=== PATIENT | male | born 1970 | race Two or more races ===

== ENCOUNTER 2018-04-06 01:35 | Emergency (ER) | payer MEDICAID, OTHER ==
[2018-04-06 02:00] VITALS: BP 121/88
--- NOTE | 2018-04-06 02:23 | EDPHY ---
H & P Stated Complaint: SUTURE REMOVAL, IN FOR 1.5 MONTHS Time Seen by Provider: 04/06/18 02:19 HPI/ROS: HPI CHIEF COMPLAINT: Possible retained sutures. HISTORY OF PRESENT ILLNESS: 47-year-old male, he states he is homeless, he states approximately 1.5 months ago he had sutures placed in his left forehead laceration. He presents to the emergency room to have sutures removed. However upon further evaluation patient does not have any sutures in his left forehead wound. The laceration is clean, dry and intact. No signs of infection. The scab was removed. And the wound was clean. No dehiscence no signs of infection. No visible sutures. Unclear if he had absorbable sutures placed. Patient states sutures were placed in [place] 1.5 months ago. Past Medical History: Denies medical history Past Surgical History: Denies surgical history Social History: Homeless, drinks alcohol. From [place]. Family History: Noncontributory ROS REVIEW OF SYSTEMS: A comprehensive 10 point review of systems is otherwise negative aside from elements mentioned in the history of present illness. Exam Constitutional triage nursing summary reviewed, vital signs reviewed, awake/ alert. Eyes normal conjunctivae and sclera, EOMI, PERRLA. HENT head left forehead region: Shows a 6 cm horizontally oriented laceration that is well approximated, clean, dry, no evidence of infection, no evidence of wound infection or dehiscence or retained sutures, normal inspection, atraumatic, moist mucus membranes, no epistaxis, neck supple/ no meningismus, no raccoon eyes. Respiratory clear to auscultation bilaterally, normal breath sounds, no respiratory distress, no wheezing. Cardiovascular rate normal, regular rhythm, no murmur, no edema, distal pulses normal. Gastrointestinal soft, non-tender, no rebound, no guarding, normal bowel sounds, no distension, no pulsatile mass. Genitourinary no CVA tenderness. Musculoskeletal no midline vertebral tenderness, full range of motion, no calf swelling, no tenderness of extremities, no meningismus, good pulses, neurovascularly intact. Skin pink, warm, & dry, no rash, skin atraumatic. Neurologic awake, alert and oriented x 3, AAOx3, moves all 4 extremities equally, motor intact, sensory intact, CN II-XII intact, normal cerebellar, normal vision, normal speech. Psychiatric normal mood/affect. Heme/Lymph/Immune no lymphadenopathy. Differential Diagnosis: Includes but is not limited to in a particular order: Wound evaluation. Retained sutures, dehiscence. Medical Decision Making: No evidence of retained sutures. Wound is clean, not infected. Plan will be for discharge. Return precautions discussed with the understands to watch for signs of further infection. Source: Patient - Personal History Current Tetanus/Diphtheria Vaccine: Yes Current Tetanus Diphtheria and Acellular Pertussis (TDAP): Yes - Medical/Surgical History Hx Asthma: No Hx Chronic Respiratory Disease: No Hx Diabetes: No Hx Cardiac Disease: No Hx Renal Disease: No Hx Cirrhosis: No Hx Alcoholism: No Hx HIV/AIDS: No Hx Splenectomy or Spleen Trauma: No Other PMH: DENIES. - Social History Smoking Status: Never smoked Constitutional: Initial Vital Signs Temperature (C) 37.0 C 04/06/18 01:35 Heart Rate 92 04/06/18 01:35 Respiratory Rate 18 04/06/18 01:35 Blood Pressure 121/88 H 04/06/18 01:35 O2 Sat (%) 100 04/06/18 01:35 O2 Delivery Mode Room Air Allergies/Adverse Reactions: No Known Allergies Allergy (Unverified 04/06/18 02:00) Home Medications: Medication Instructions Recorded NK [No Known Home Meds] 04/06/18 Departure - Departure Disposition: Home, Routine, Self-Care Clinical Impression: Visit for wound check Condition: Good Instructions: Wound Healing and Your Diet (ED) Referrals: NONE *PRIMARY CARE P,. [Primary Care Provider] - As per Instructions
== END 2018-04-06 02:34 | disposition home or self-care (01) ==
DX: Z48.01 Encounter for change or removal of surgical wound dressing (principal)

== ENCOUNTER 2018-10-11 12:16 | Emergency (ER) | payer MEDICAID ==
--- NOTE | 2018-10-11 12:20 | EDPHY ---
H & P Source: Patient Exam Limitations: No limitations - Medical/Surgical History Hx Asthma: No Hx Chronic Respiratory Disease: No Hx Diabetes: No Hx Cardiac Disease: No Hx Renal Disease: No Hx Cirrhosis: No Hx Alcoholism: No Hx HIV/AIDS: No Hx Splenectomy or Spleen Trauma: No Other PMH: DENIES. - Social History Smoking Status: Never smoked Time Seen by Provider: 10/11/18 12:19 HPI/ROS: HPI: This is a 48-year-old male who presents with Chief Complaint: [facility] hold Location: body Quality: Alcohol intoxication Duration: Unknown Signs and Symptoms: no fever, no nausea, no vomiting, no hematemesis, no blood in stool, no abdominal bloating, no diarrhea, no back pain, no urinary symptoms , no testicular/groin pain, no indigestion, no chest pain, no shortness of breath Timing: Acute on chronic Severity: Moderate to severe Context: Patient is brought in by police on [facility]. He was found with a group and passed out with a bottle of [place] next to him. He was unable to ambulate on his own and was brought to the emergency room for further evaluation. He was placed on [facility] hold by [facility] [employer]. He is currently sleeping soundly and has no complaints and is a very poor historian. Patient defecated on his leg. Modifying Factors: None Comment: ROS: A comprehensive 10 system review of systems is otherwise negative aside from elements mentioned in the history of present illness. MEDICAL/SURGICAL/SOCIAL HISTORY: Medical history: Alcohol abuse Surgical history: Denies Social history: Homeless. Family history noncontributory. CONSTITUTIONAL: Intoxicated, middle-aged male who appears older than stated age , malodorous, untidy, sleeping soundly, awake and alert, no obvious distress HEENT: Atraumatic and normocephalic, PERRL, EOMI. Nares patent; no rhinorrhea; no nasal mucosal edema. Tympanic membranes clear. Oropharynx clear, no exudate and moist pink mucosa. Airway patent. No lymphadenopathy. No meningismus. Cardiovascular: Normal S1/S2, regular rate, regular rhythm, without murmur rub or gallop. PULMONARY/CHEST: Symmetrical and nontender. Clear to auscultation bilaterally. Good air movement. No accessory muscle usage. ABDOMEN: Soft, nondistended, nontender, no rebound, no guarding, no peritoneal signs, no masses or organomegaly. No CVAT. EXTREMITIES: 2/2 pulses, strength 5/5, no deformities, no clubbing, no cyanosis or edema. NEUROLOGICAL: no focal neuro deficits. GCS 13. Awakens to sternal rub and then quickly falls back asleep. SKIN: Warm and dry, no erythema. no rash. Good capillary refill. (Skylar Prado) Constitutional: Initial Vital Signs Temperature (C) 36.6 C 10/11/18 12:21 Heart Rate 69 10/11/18 12:21 Respiratory Rate 16 10/11/18 12:21 Blood Pressure 112/89 H 10/11/18 12:21 O2 Sat (%) 98 10/11/18 12:21 O2 Delivery Mode Room Air Allergies/Adverse Reactions: No Known Allergies Allergy (Unverified 04/06/18 02:00) Home Medications: Medication Instructions Recorded NK [No Known Home Meds] 04/06/18 Medical Decision Making ED Course/Re-evaluation: Vital signs reviewed and stable upon arrival. Placed on manager cardiac. Agree with [facility] hold. 1530: Patient ambulating back and forth to the restroom without any signs of ataxia. He is appropriate to be discharged to the [facility] with Librium prepack. 1625: [facility] Police has arrived to transfer patient to the [facility]. This patient was seen under the supervision of my secondary supervising physician. I evaluated care for this patient independently. (Skylar Prado) Differential Diagnosis: Altered mental status including but not limited to hypoglycemia, infectious process, electrolyte abnormality, head injury and intoxicants. (Skylar Prado) Other Provider: The patient was evaluated and managed by the Physician [facility] Management Assistant. My co- signature indicates that I have reviewed this chart and I agree with the findings and plan of care as documented. I am the secondary supervising physician. (Jodee Miller) - Data Points Medications Given: Discontinued Medications Chlordiazepoxide (Librium 25 Mg Prepack#6) 1 btl TAKEHOME EDNOW ONE Stop: 10/11/18 15:30 Last Admin: 10/11/18 16:22 Dose: 1 btl Departure - Departure Disposition: Home, Routine, Self-Care Clinical Impression: Alcoholic intoxication without complication Condition: Good Instructions: Alcohol Intoxication (ED), Abuse of Alcohol (ED) Additional Instructions: Please refrain from drinking alcohol excessively. You are medically cleared to be discharged to the [facility]. Referrals: [facility],. [Clinic] - As per Instructions [facility] 24 Hours [Outside] - As per Instructions
[2018-10-11 15:21] VITALS: BP 110/70
[2018-10-11] MEDS ORDERED: CHLORDIAZEPOXIDE 25MG PREPK#6 BTL TAKEHOME ONE (15:29)
== END 2018-10-11 16:53 | disposition home or self-care (01) ==
LOC: EDUNIT#
DX: F10.920 Alcohol use, unspecified with intoxication, uncomplicated (principal)

== ENCOUNTER 2018-10-16 21:17 | Emergency (ER) | payer SELFPAY ==
[2018-10-16] MEDS ORDERED: LORazepam 2 MG/ML INJ IVP ONE (21:25)
[2018-10-16] MEDS ORDERED: NS 1,000 ML IV ONE (21:25)
[2018-10-16] MEDS ORDERED: chlordiazePOXIDE 25 MG CAP PO ONE (21:25)
--- NOTE | 2018-10-16 21:49 | EDPHY ---
H & P Stated Complaint: med clear for retirement, n/v,etoh Time Seen by Provider: 10/16/18 21:18 HPI/ROS: Chief complaint: Alcohol intoxication History of present illness: This is a 48-year-old male brought to the emergency department by EMS for alcohol intoxication. He was found outside intoxicated. Apparently he is under arrest and will be going to retirement this evening. On my evaluation he states he has been drinking heavily and just feels unwell. He has had some nausea, EMS did provide Zofran with resolution of nausea. No vomiting. No diarrhea or constipation. Review of systems: A 10 point review of systems was obtained and other than described above was negative - Personal History Current Tetanus Diphtheria and Acellular Pertussis (TDAP): Yes - Medical/Surgical History Hx Asthma: No Hx Chronic Respiratory Disease: No Hx Diabetes: No Hx Cardiac Disease: No Hx Renal Disease: No Hx Cirrhosis: No Hx Alcoholism: No Hx HIV/AIDS: No Hx Splenectomy or Spleen Trauma: No Other PMH: kidney surgery, etoh abuse, esophageal varacices. - Social History Smoking Status: Never smoked - Physical Exam Exam: General Appearance: Alert, strong odor of alcohol on his breath. Eyes: Pupils equal and round no pallor or injection. ENT, Mouth: Mucous membranes moist. Respiratory: There are no retractions, lungs are clear to auscultation. Cardiovascular: Regular rate and rhythm. Gastrointestinal: Abdomen is soft and non tender, no masses, bowel sounds normal. Neurological: Alert. Strength and sensation intact and symmetrical. Skin: Warm and dry, no rashes. Musculoskeletal: Neck is supple non tender. Extremities are symmetrical, full range of motion. Psychiatric: Patient is oriented X 3, there is no agitation. Constitutional: Initial Vital Signs Temperature (C) 36.6 C 10/16/18 21:21 Heart Rate 82 10/16/18 21:21 Respiratory Rate 16 10/16/18 21:21 Blood Pressure 125/88 H 10/16/18 21:21 O2 Sat (%) 97 10/16/18 21:21 O2 Delivery Mode Room Air Allergies/Adverse Reactions: No Known Allergies Allergy (Unverified 04/06/18 02:00) Home Medications: Medication Instructions Recorded NK [No Known Home Meds] 04/06/18 Medical Decision Making ED Course/Re-evaluation: Patient seen under the supervision of my secondary supervising physician Dr. Moustapha Coleman. Patient presents to the emergency department intoxicated, he states he feels unwell. Vital signs are stable. I-STAT unremarkable. No evidence of severe withdrawal at this time. I believe he is medically cleared to go to retirement. However, I have discussed with him that if he has worsening of symptoms or new symptoms develop he should notify police or return to the emergency room if he is not in retirement for continued evaluation and care. He is otherwise to follow up with a primary care doctor for recheck. Differential Diagnosis: Included but not limited to alcohol intoxication, alcohol withdrawal, DTs, polysubstance abuse - Data Points Laboratory Results: 10/16/18 21:37 POC Hgb 16.7 gm/dL gm/dL (13.7-17.5) POC Hct 49 % % (40-51) POC Sodium 143 mEq/L mEq/L (135-145) POC Potassium 4.4 mEq/L mEq/L (3.3-5.0) POC Chloride 106 mEq/L mEq/L (97-110) POC BUN 27 mg/dL H mg/dL (7-23) POC Creatinine 1.1 mg/dL mg/dL (0.7-1.3) POC Glucose 91 mg/dL mg/dL (70-100) Medications Given: Discontinued Medications Chlordiazepoxide HCl (Librium) 25 mg PO EDNOW ONE Stop: 10/16/18 21:26 Last Admin: 10/16/18 21:47 Dose: 25 mg Sodium Chloride (Ns) 1,000 mls @ 0 mls/hr IV EDNOW ONE; Wide Open PRN Reason: Protocol Stop: 10/16/18 21:26 Last Admin: 10/16/18 21:47 Dose: 1,000 mls Lorazepam (Ativan Injection) 1 mg IVP EDNOW ONE Stop: 10/16/18 21:26 Last Admin: 10/16/18 21:47 Dose: 1 mg Point of Care Test Results: Chemistry 10/16/18 21:37 POC Sodium 143 mEq/L mEq/L (135-145) POC Potassium 4.4 mEq/L mEq/L (3.3-5.0) POC Chloride 106 mEq/L mEq/L (97-110) POC BUN 27 mg/dL H mg/dL (7-23) POC Creatinine 1.1 mg/dL mg/dL (0.7-1.3) POC Glucose 91 mg/dL mg/dL (70-100) ISTAT H&H 10/16/18 21:37 POC Hgb 16.7 gm/dL gm/dL (13.7-17.5) POC Hct 49 % % (40-51) Departure - Departure Disposition: Home, Routine, Self-Care Clinical Impression: Alcoholic intoxication Qualifiers: Complication of substance-induced condition: uncomplicated Qualified Code(s): F10.920 - Alcohol use, unspecified with intoxication, uncomplicated Condition: Good Instructions: Alcohol Intoxication (ED) Additional Instructions: Follow-up with a primary care doctor for continued evaluation and care Medically cleared for retirement If symptoms worsen or new symptoms develop return to the emergency department for recheck Referrals: Patient,NotPresent [Primary Care Provider] - As per Instructions [facility],. [Clinic] - As per Instructions
[2018-10-16 21:58] VITALS: BP 122/81
== END 2018-10-16 22:01 | disposition home or self-care (01) ==
LOC: EDUNIT#
DX: F10.920 Alcohol use, unspecified with intoxication, uncomplicated (principal)
CPT/HCPCS: 82435-PO; 82565-PO; 82947-PO; 84132-PO; 84295-PO; 84520-PO; 85014-ER; 96374; J2060